=== PATIENT | male | born 1965 | race Caucasian/White ===

== ENCOUNTER 2020-12-16 09:24 | Emergency (ER) | payer SELFPAY ==
[~2020-12-16] VITALS: Ht 175.3 cm; Wt 71.4 kg
[2020-12-16 09:28] VITALS: BP 150/75
--- NOTE | 2020-12-16 09:49 | NUR ---
PT HAS C/O SUDDEN DIAHREA OVER THE NIGHT. PT STATED " HE IS HERE FROM [facility] AND IS HOMELESS AND HAS NOT EATEN IN 2 DAYS AND WANT TO GO BACK TO [place]" DENIES ABD PAIN, VSS
--- NOTE | 2020-12-16 09:54 | NUR ---
LAB AT BEDSIDE
[2020-12-16 10:13] LABS: BASOPHILS % (AUTO) 1 % (0-1); EOSINOPHILS % (AUTO) 2 % (1-7); LYMPHOCYTES % (AUTO) 29 % (22-44); MEAN CORPUSCULAR HEMOGLOBIN 30.9 pg (27.5-34.5); MEAN CORPUSCULAR HGB CONC 34.5 g/dL (33.2-36.2); MEAN PLATELET VOLUME 9.8 fL (7.4-10.4); MONOCYTES % (AUTO) 10 % (2-9); NEUTROPHILS % (AUTO) 57 % (42-75); PLATELET COUNT 186 x10^3/uL (130-400); RED BLOOD COUNT 4.37 x10^6/uL (4.38-5.82); RED CELL DISTRIBUTION WIDTH 14.3 % (9.4-14.8)
[2020-12-16 10:17] LABS: MD NO
[2020-12-16 10:22] LABS: ALBUMIN 3.9 g/dL (3.4-5.0); ANION GAP 5 mmol/L (5-15); CALCIUM 8.8 mg/dL (8.5-10.1); CHLORIDE 107 mmol/L (98-107); CREATININE 1.04 mg/dL (0.7-1.3)
--- NOTE | 2020-12-16 11:05 | NUR ---
RECEIVED REPORT FROM SHELLEY WILLAMS. ASSUMING CARE AT THIS TIME. PT SITTING ON GURNEY EATING. EDP REQUESTED MED RECORDS FROM [facility].
--- NOTE | 2020-12-16 12:56 | NUR ---
MD AT BEDSIDE TO UPDATE PT ON POC.
== END 2020-12-16 13:36 | disposition home or self-care (01) ==
LOC: ED 10:26
DX: I82.401 Acute embolism and thrombosis of unspecified deep veins of right lower extremity (principal); R19.7 Diarrhea, unspecified
CPT/HCPCS: 36415; 80048; 82040; 85025; 99283

== ENCOUNTER 2020-12-19 01:05 | Emergency (ER) | payer MEDICAID, MEDICARE ==
[~2020-12-19] VITALS: Ht 175.3 cm; Wt 65.0 kg
[2020-12-19 01:08] VITALS: BP 138/93
--- NOTE | 2020-12-19 01:16 | NUR ---
Pt refusing to answser my questions, corneliobhaskar says "im allergic to tylenol, asa and motrin". RR equal and unlabored. He is alert and oriented. Per medic pt has hx of having PD called on him for aggressive, combative behavior at community clinics.
[2020-12-19] MEDS ORDERED: LORazepam 2 MG/ML, 1ML IVPush ONE (01:30)
[2020-12-19] MEDS ORDERED: SODIUM CHLORIDE FLUSH 10ML SYR IVF ONE (01:30)
[2020-12-19] MEDS ORDERED: LORazepam 2 MG/ML, 1ML ONE (01:31)
[2020-12-19 01:44] LABS: BASOPHILS % (AUTO) 1 % (0-1); EOSINOPHILS % (AUTO) 2 % (1-7); LYMPHOCYTES % (AUTO) 24 % (22-44); MEAN CORPUSCULAR HEMOGLOBIN 30.9 pg (27.5-34.5); MEAN PLATELET VOLUME 9.5 fL (7.4-10.4); MONOCYTES % (AUTO) 11 % (2-9); NEUTROPHILS % (AUTO) 61 % (42-75); PLATELET COUNT 184 x10^3/uL (130-400); RED BLOOD COUNT 4.29 x10^6/uL (4.38-5.82); RED CELL DISTRIBUTION WIDTH 14.4 % (9.4-14.8)
[2020-12-19 01:50] LABS: ALBUMIN 3.6 g/dL (3.4-5.0); ANION GAP 4 mmol/L (5-15); CALCIUM 8.5 mg/dL (8.5-10.1); CHLORIDE 110 mmol/L (98-107); CREATININE 0.91 mg/dL (0.7-1.3)
[2020-12-19 01:52] LABS: MD NO
[2020-12-19 01:54] LABS: TROPONIN I < 0.015 ng/mL (0.000-0.045)
== END 2020-12-19 02:02 ==
LOC: ED 01:56
DX: R07.89 Other chest pain (principal); F15.10 Other stimulant abuse, uncomplicated; R06.02 Shortness of breath; Z72.9 Problem related to lifestyle, unspecified; Z86.718 Personal history of other venous thrombosis and embolism
CPT/HCPCS: 36415; 80048; 82040; 83880; 84484; 85025; 99283